=== PATIENT | female | born 1965 | race Caucasian/White ===

== ENCOUNTER 2018-06-28 02:12 | Inpatient (IN) | payer MEDICAID, OTHER ==
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
[2018-06-28] MEDS ORDERED: ACETAMINOPHEN TAB 325 MG TAB PO PRN (08:07)
[2018-06-28] MEDS ORDERED: MAGNESIUM HYDROXIDE 2,400 MG/10 ML CUP PO PRN (08:07)
[2018-06-28] MEDS ORDERED: MAG HYDROX/AL HYDROX/SIMETH 30 ML CUP PO PRN (08:07)
--- NOTE | 2018-06-28 10:48 | P.HPMEDMHU ---
History of Present Illness H&P Date: 06/28/18 Chief Complaint: Consult for MHU HPI The patient is a 52-year-old female with a past medical history of bipolar disorder who is admitted to the mental health unit due due to acute psychosis. Apparently the patient been having ongoing paranoid delusions, she reportedly tried to cross the border at the [employer] bridge and stated that she was being followed by terrorists. She also reported that she was going to [facility] to help . The patient mentioned that she was from out of state that she was tired from driving since Wednesday because she hasn't slept. Patient was difficult to redirect complaining that she was tired and fatigued and wanted to go back to bed to sleep. The patient was marginally cooperative during HPI hence most of the history is obtained from medical records, she did manage to deny having any chronic medical issues, she denied any chest pain or shortness of breath. She denied any suicidal or homicidal ideation. On admission the patient was noted to be hypertensive 149/102 Review of Systems Pertinent positives per HPI all other review of systems otherwise negative Past Medical History Past Medical History: No Reported History History of Any Multi-Drug Resistant Organisms: None Reported Past Surgical History: No Surgical Hx Reported Past Psychological History: Bipolar Smoking Status: Never smoker Past Alcohol Use History: None Reported Past Drug Use History: None Reported Medications and Allergies Allergies Allergy/AdvReac Type Severity Reaction Status Date / Time No Known Allergies Allergy Verified 06/28/18 02:45 Physical Exam Vitals: Vital Signs Temp Pulse Pulse Resp BP BP Pulse Ox 06/28/18 07:50 97.3 F L 97 16 149/102 97 06/28/18 07:32 97.0 F L 72 18 145/78 98 06/28/18 02:15 98.0 F 78 16 143/80 98 Intake and Output 06/27/18 06/28/18 06/28/18 22:59 06:59 14:59 Other: Weight 113.398 kg Constitutional: No acute distress, conversant, pleasant Eyes: Anicteric sclerae, moist conjunctiva, no lid-lag, PERRLA ENMT: NC/AT,Oropharynx clear, no erythema, exudates Neck:Supple, FROM, no masses, or JVD, No carotid bruits; No thyromegaly Lungs: Clear to auscultation, Clear to percussion, Normal respiratory effort, no accessory muscle use Cardiovascular: Heart regular in rate and rhythm, No murmurs, gallops, or rubs no peripheral edema Abdominal: Soft Nontender, nom distended, no guarding, no rebound or rigidity, Normoactive bowel sounds No hepatomegaly, No splenomegaly, No palpable mass No abdominal wall hernia noted Skin: Normal temperature, tone, texture, turgor, No induration No subcutaneous nodules, No rash, lesions, No ulcers Extremities:No digital cyanosis No clubbing, Pedal pulses intact and symmetrical Radial pulses intact and symmetrical Normal gait and station, No calf tenderness Psychiatric: Not cooperative oriented to self only, paranoid delusions of persecution, bizarre thought content Neuro: Muscles Strength 5/5 in all 4 extremities, Sensation to light touch grossly present throughout, Cranial nerves II-XII grossly intact. No focal sensory deficits Cranial Nerve Examination - Cranial Nerves Cranial Nerve II- Optic: Intact Cranial Nerve III- Oculomotor: Intact Cranial Nerve IV- Trochlear: Intact Cranial Nerve V- Trigeminal: Intact Cranial Nerve - Abducens: Intact Cranial Nerve VII- Facial: Intact Cranial Nerve VIII- Auditory: Intact Cranial Nerve IX- Glossopharyngeal: Intact Cranial Nerve X- Vagus: Intact Cranial Nerve XI- Accessory: Intact Cranial Nerve XII- Hypoglossal: Intact Assessment and Plan (1) Acute psychosis Current Visit: Yes Status: Acute Code(s): F23 - BRIEF PSYCHOTIC DISORDER SNOMED Code(s): 52819336 (2) Acute exacerbation of chronic schizophrenia Current Visit: Yes Status: Acute Code(s): F20.9 - SCHIZOPHRENIA, UNSPECIFIED SNOMED Code(s): 259382128 (3) Bipolar disorder Current Visit: Yes Status: Acute Code(s): F31.9 - BIPOLAR DISORDER, UNSPECIFIED SNOMED Code(s): 42188773 (4) Hypertension Current Visit: Yes Status: Acute Code(s): I10 - ESSENTIAL (PRIMARY) HYPERTENSION SNOMED Code(s): 63438114 Plan: The patient is admitted to the mental health unit anticipated greater than 2 midnight stay with acute psychosis and exacerbation of schizophrenia, will defer to inpatient psychiatry team regarding ongoing psychotropic therapy in coordination with CBT. The patient is noted to have elevated blood pressure and possibly has hypertension she started on Norvasc 5 mg by mouth daily. We' ll continue to follow her clinical course and follow-up her admission labs. I appreciate the opportunity to be involved in ongoing care of this patient. For further questions please does not hesitate to contact the [facility] inpatient team
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
[2018-06-28] MEDS: PALIPERIDONE 3 MG TAB.ER.24 PO SCH (12:29)
[2018-06-28] MEDS: amLODIPine 5 MG TAB PO SCH (12:30)
[2018-06-28] MEDS: DIVALPROEX ER 500 MG TAB.ER.24H PO SCH (21:05)
[2018-06-29] MEDS: amLODIPine 5 MG TAB PO SCH (08:57)
[2018-06-29] MEDS: PALIPERIDONE 3 MG TAB.ER.24 PO SCH (08:58)
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
[2018-06-29 10:08] LABS: ALT 42 U/L (9-52); AST 28 U/L (14-36); Albumin 3.8 g/dL (3.5-5.0); Alkaline Phosphatase 80 U/L (38-126); Anion Gap 8 mmol/L; Bilirubin, Delta 0.3 mg/dL (0.0-0.2); Bilirubin,Unconjugated 0.2 mg/dL (0.0-1.1); Blood Urea Nitrogen 15 mg/dL (7-17); Calcium 9.4 mg/dL (8.4-10.2); Carbon Dioxide 28 mmol/L (22-30); Chloride 108 mmol/L (98-107); Glucose 116 mg/dL (74-99); Sodium 144 mmol/L (137-145); Total Bilirubin 0.5 mg/dL (0.2-1.3); Total Protein 6.6 g/dL (6.3-8.2)
[2018-06-29 10:21] LABS: Basophils % (A) 1 %; Eosinophils # (A) 0.2 k/uL (0-0.7); Eosinophils % (A) 3 %; HCT 40.4 % (34.0-46.0); HGB 13.8 gm/dL (11.4-16.0); Lymphocytes # (A) 1.8 k/uL (1.0-4.8); Lymphocytes % (A) 34 %; MCV 85.3 fL (80.0-100.0); Mean Platelet Volume 6.6; Monocytes # (A) 0.3 k/uL (0-1.0); Monocytes % (A) 5 %; Neutrophils # (A) 2.9 k/uL (1.3-7.7); Neutrophils % (A) 55 %; Platelet Count 256 k/uL (150-450); RBC 4.74 m/uL (3.80-5.40); WBC 5.3 k/uL (3.8-10.6)
[2018-06-29 11:14] LABS: Potassium 3.1 mmol/L (3.5-5.1)
[2018-06-29] MEDS ORDERED: POTASSIUM CHLORIDE ER 20 MEQ TAB.ER PO STA (12:50)
[2018-06-29 14:47] LABS: T4, Free (Free Thyroxine) 1.24 ng/dL (0.78-2.19)
[2018-06-29] MEDS: DIVALPROEX ER 500 MG TAB.ER.24H PO SCH (21:35)
[2018-06-30] MEDS: amLODIPine 10 MG TAB PO SCH (07:01)
[2018-06-30] MEDS: PALIPERIDONE 6 MG TAB.ER.24 PO SCH ×2 (08:57→10:39)
[2018-06-30 09:34] LABS: Anion Gap 8 mmol/L; Blood Urea Nitrogen 13 mg/dL (7-17); Calcium 9.8 mg/dL (8.4-10.2); Carbon Dioxide 30 mmol/L (22-30); Chloride 104 mmol/L (98-107); Glucose 115 mg/dL (74-99); Potassium 4.6 mmol/L (3.5-5.1); Sodium 142 mmol/L (137-145)
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
[2018-07-01] MEDS: DIVALPROEX ER 500 MG TAB.ER.24H PO SCH ×2 (07:38→20:51)
[2018-07-01] MEDS: PALIPERIDONE 6 MG TAB.ER.24 PO SCH (07:40)
[2018-07-01] MEDS: amLODIPine 10 MG TAB PO SCH (07:40)
--- NOTE | 2018-07-01 10:07 | P.PN ---
Progress Note - Text Interval history: The patient is found in her room she follows me to an interview room. She states that we have numerous Al Qaeda workers here. She reports that the person wearing green in the kitchen is Al Rebecca. She states that there are invisible [employer] members here protecting her. She states that there are angels that are using invisibility blankets to conceal them. She states that she is involved in a spiritual warfare. She is surprised that were not more aware of what's going on as this is a hospital. She directs me to contact the [employer], her service desk team lead Cristhian in [place] and Shanice. She states that we have the devil here on the unit. Numerous times she states she's not crazy. She indicates not attending groups she has been eating. She reports that she slept throughout the night. Mental status exam: The patient is a tall overweight female appearing her stated age. She is pleasant cooperative easily directed. She continues to describe a detailed delusional construct. Thought process is ruminative regarding her delusional thoughts. She reports no suicidal or homicidal thoughts. She is endorsing auditory hallucinations where she will hear the whispers of angels that are keeping [employer] members invisible as they are here to protect her. She demonstrates no verbal or physical aggressiveness she demonstrates no involuntary repetitive movements. Insight and judgment are poor. Plan: The patient remains acutely psychotic she will remain on her current psychotropic medications. She did comply with those yesterday and today. She indicates she did not meet with the family nurse practitioner for the deferral conference as she felt he was from [facility]. She is encouraged to participate in the milieu. Vital signs reviewed.
[2018-07-02] MEDS: amLODIPine 10 MG TAB PO SCH (08:21)
[2018-07-02] MEDS: PALIPERIDONE 6 MG TAB.ER.24 PO SCH (08:21)
--- NOTE | 2018-07-02 12:46 | P.PN ---
Progress Note - Text Progress Note Date: 07/02/18 Interval history: Patient is seen in cross coverage today. She is found seated on furniture in the hallway. She is not agreeable to come with me to the interview room. She makes reference to that she is going to lunch. Mental status exam: She is found in the hallway seated on furniture. She refuses to come to the interview room to meet with me. She makes reference to going to lunch. She is noted to be moving her hand down and seems like she is grasping something in the air. She does not show any agitation. Plan: Patient would be maintained on current psychotropic medication regimen will continue to monitor for any medication side effects and monitor her ongoing response to treatment. We will attempt to interview the patient again tomorrow.
[2018-07-02] MEDS: DIVALPROEX ER 500 MG TAB.ER.24H PO SCH (20:06)
[2018-07-03] MEDS: PALIPERIDONE 6 MG TAB.ER.24 PO SCH (07:52)
[2018-07-03] MEDS: amLODIPine 10 MG TAB PO SCH (07:52)
--- NOTE | 2018-07-03 14:12 | P.PN ---
Progress Note - Text Progress Note Date: 07/03/18 Interval history: Patient is seen in cross [facility] today. She reports that she slept well last night and is eating well. She denies any adverse psychotropic medication side effects. She seems to be compliant with taking the psychotropic medications. Mental status exam: She is found initially in her room and is agreeable to meet with me in the interview room with staff present. Her affect overall is restricted. She answers questions very briefly. She is cooperative. She does not show any agitation. She denies any thoughts of harm to self or others. She denies any hallucinations. She does not verbalize any maribell delusions during the session. She says she has some questions but she prefers to ask them to her psychiatrist. Plan: Patient will be maintained on current psychotropic medication regimen. Continue to monitor for any medication side effects and monitor her ongoing response to treatment.
[2018-07-03] MEDS: DIVALPROEX ER 500 MG TAB.ER.24H PO SCH (21:55)
[2018-07-04] MEDS: amLODIPine 10 MG TAB PO SCH (09:45)
[2018-07-04] MEDS: PALIPERIDONE 6 MG TAB.ER.24 PO SCH ×2 (09:45→10:02)
--- NOTE | 2018-07-04 10:51 | P.PN ---
Progress Note - Text Interval history: The patient is found in her room she follows me to an interview room. She indicates her mood is fine. She states that the weekend covering physician was Sudarshan Fernandez and she did not want to meet with him. She goes on to describe paranoid and persecutory thoughts. She states she has been eating. Sleep at night is been diminished but she is sleeping during the day. She has not been showering since she has been on the mental health unit. She has no questions or concerns regarding her medication. During team meeting we discussed being on the lookout for cheeking behavior. Metal status exam: The patient is an overweight tall female appearing her stated age. Hygiene and grooming are impaired she is malodorous. Eye contact is appropriate speech is fluent spontaneous nonpressured. She is verbose regarding her delusional thought content. She continues to feel that she is being tracked by Sudarshan Fernandez and they have infiltrated the hospital. She is reporting no suicidal or homicidal ideation. She is demonstrating no verbal or physical aggressiveness she demonstrates no involuntary repetitive movements. Insight and judgment are impaired. Plan: The patient will continue on her current medication. We will draw a Depakote level. Staff will monitor for medication compliance. Reality orientation is provided. She is encouraged to attend groups. Vital signs reviewed. The patient has demonstrated no improvement so far in terms of her psychosis she requires continued psychiatric hospitalization.
[2018-07-04] MEDS: DIVALPROEX ER 500 MG TAB.ER.24H PO SCH (20:56)
[2018-07-05] MEDS: PALIPERIDONE 6 MG TAB.ER.24 PO SCH (09:28)
[2018-07-05] MEDS: amLODIPine 10 MG TAB PO SCH (09:28)
--- NOTE | 2018-07-05 09:31 | P.PN ---
Progress Note - Text Interval history: The patient is found in her room she follows me to an interview room. She wonders if I think she has bipolar disorder. She states whenever people here that she is being followed by [facility] people they assume she has bipolar disorder. She asked that I be brave and contact the [employer] to access her file as they are aware of what is going on. She states that she met with her disability attorney yesterday and plans to proceed [address] hearing. She indicates she showered yesterday but is still malodorous. She reports sleeping throughout the night staff recorded she slept 5 hours. She states that she is complying with medication. Social work notes reviewed. Mental status exam: The patient is a tall overweight female. She has impaired hygiene grooming. She does have a body odor. She reports feeling frustrated that people assume she has a bipolar disorder. She indicates she does not need medication. She continues to feel she is followed and is in danger from members of [facility]. She will state several short prayers to protect herself while she is here. She asks me to pray for her as well. She reports no suicidal or homicidal ideation intent or plan. She continues to describe some visual hallucinations. She demonstrates no verbal or physical aggressiveness. She is easily directed during the session. Plan: The patient remains acutely psychotic. We are awaiting the results of the Depakote level. We will consider titrating the Depakote as well as the invega. She is scheduled to participate in a full court hearing tomorrow. We will continue monitoring her for safety. Vital signs reviewed. She is encouraged to more fully attend to her activities of daily living in particular hygiene.
[2018-07-05 13:53] LABS: Valproic Acid (Depakene) 81.6 ug/mL
[2018-07-05] MEDS: DIVALPROEX ER 500 MG TAB.ER.24H PO SCH (19:55)
[2018-07-06] MEDS: amLODIPine 10 MG TAB PO SCH (07:36)
[2018-07-06] MEDS: PALIPERIDONE 6 MG TAB.ER.24 PO SCH (07:36)
--- NOTE | 2018-07-06 11:09 | P.PN ---
Progress Note - Text Interval history: The patient is found in her room she follows me to an interview room. She reports she continues to feel unsafe as previously described. She begins talking about prior hospitalizations and how she had concern that people were rewiring the mental health unit. We discussed the court process involved for today's hearing. We reviewed her psychotropic medications. Her Depakote level came back at 81.6 liver enzymes were within normal limits. She reports that she slept last night. She has not been attending groups. The patient remains very preoccupied with her delusional construct and this continues to cause dysfunction for her. Mental status exam: The patient is alert she is dressed in her own clothing hygiene grooming fair. Eye contact appropriate speech is fluent and spontaneous nonpressured. She is verbose and we'll continue to talk at length about her paranoid and persecutory thoughts. She continues to feel protected by the police and but feels that the [employer] are working against her. She reports feeling unsafe here on this mental health unit. Insight and judgment are impaired. She seated calmly in the chair. She demonstrates no verbal or physical aggressiveness. Plan: The patient remains acutely psychotic which contributes to her psychosocial dysfunction. We will continue on her current medication we will consider titrating the Invega further. She has a court hearing scheduled for this afternoon. Vital signs reviewed.
[2018-07-06] MEDS: DIVALPROEX ER 500 MG TAB.ER.24H PO SCH (20:28)
[2018-07-07] MEDS: amLODIPine 10 MG TAB PO SCH (07:34)
[2018-07-07] MEDS: PALIPERIDONE 6 MG TAB.ER.24 PO SCH (07:34)
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
[2018-07-07] MEDS: DIVALPROEX ER 500 MG TAB.ER.24H PO SCH (20:59)
[2018-07-08] MEDS: PALIPERIDONE 6 MG TAB.ER.24 PO SCH (08:43)
[2018-07-08] MEDS: amLODIPine 10 MG TAB PO SCH (08:43)
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
[2018-07-08] MEDS: DIVALPROEX ER 500 MG TAB.ER.24H PO SCH (21:00)
[2018-07-09] MEDS: PALIPERIDONE 6 MG TAB.ER.24 PO SCH (08:01)
[2018-07-09] MEDS: amLODIPine 10 MG TAB PO SCH (08:01)
--- NOTE | 2018-07-09 18:41 | P.PN ---
Progress Note - Text Progress Note Date: 07/09/18 Interval history: The patient is found in her room laying in bed comfortably. Found her still anxious and nervous. She denies hearing any voices or seeing things. We reviewed her psychotropic medications. Although she continues to comply with what's prescribed she states she does not believe she needs them. We discussed titrating the Invega further and she refuses. Mental status exam: The patient is a tall overweight female appearing her stated age. She has impaired hygiene grooming and she is malodorous. She is dressed in the same clothing. She is wearing her eyeglasses. She seated calmly. She is pleasant and cooperative. She demonstrates no verbal or physical aggressiveness. She continues to deny having any thoughts of harming herself or others but states she will defend herself. Spontaneously and at length she describes her delusional construct. She continues to feel pursued and persecuted by members of [facility]. She reports not showering as she feels unsafe here. She does not frequently attend groups and will isolate in her room. Insight and judgment are impaired. Her thoughts are largely focused on her delusional content. Plan: Will continue to offer her increased dose of invega. She is encouraged to continue complying with the psychotropic medications as written. She remains acutely psychotic. She isolates in her room. She is malodorous from not bathing due to her delusional thoughts. She demonstrates no improved insight into her psychosis since time of admission.
[2018-07-09] MEDS: DIVALPROEX ER 500 MG TAB.ER.24H PO SCH (20:52)
[2018-07-10] MEDS: amLODIPine 10 MG TAB PO SCH (08:35)
[2018-07-10] MEDS: PALIPERIDONE 6 MG TAB.ER.24 PO SCH (08:35)
--- NOTE | 2018-07-10 11:49 | P.PN ---
Progress Note - Text Progress Note Date: 07/10/18 Interval history: The patient is found in her room writing notes. Found her still anxious and nervous. She denies hearing any voices or seeing things. We reviewed her psychotropic medications. Although she continues to comply with what's prescribed she states she does not believe she needs them. We discussed titrating the Invega further and she refuses. She took shower yesterday Mental status exam: The patient is a tall overweight female appearing her stated age. She has impaired hygiene grooming and she is malodorous. She is dressed in the same clothing. She is wearing her eyeglasses. She seated calmly. She is pleasant and cooperative. She demonstrates no verbal or physical aggressiveness. She continues to deny having any thoughts of harming herself or others but states she will defend herself. Spontaneously and at length she describes her delusional construct. She continues to feel pursued and persecuted by members of [facility]. She reports not showering as she feels unsafe here. She does not frequently attend groups and will isolate in her room. Insight and judgment are impaired. Her thoughts are largely focused on her delusional content. Plan: Will continue to offer her increased dose of invega. She is encouraged to continue complying with the psychotropic medications as written. She remains acutely psychotic. She isolates in her room. She demonstrates no improved insight into her psychosis since time of admission.
[2018-07-10] MEDS: DIVALPROEX ER 500 MG TAB.ER.24H PO SCH (20:30)
[2018-07-11] MEDS: amLODIPine 10 MG TAB PO SCH (07:41)
[2018-07-11] MEDS: PALIPERIDONE 6 MG TAB.ER.24 PO SCH (07:41)
--- NOTE | 2018-07-11 16:49 | P.PN ---
Progress Note - Text Progress Note Date: 07/11/18 Interval history: The patient is found out side her room first time. Found her much calmer and relax, getting ready to take shower. She denies hearing any voices or seeing things. We reviewed her psychotropic medications. Although she continues to comply with what's prescribed she states she does not believe she needs them. Mental status exam: The patient is a tall overweight female appearing her stated age. She has impaired hygiene grooming and she is malodorous. She is dressed in the same clothing. She is wearing her eyeglasses. She seated calmly. She is pleasant and cooperative. She demonstrates no verbal or physical aggressiveness. She continues to deny having any thoughts of harming herself or others but states she will defend herself. Spontaneously and at length she describes her delusional construct. She continues to feel pursued and persecuted by members of Al [facility]. She reports not showering as she feels unsafe here. She does not frequently attend groups and will isolate in her room. Insight and judgment are impaired. Her thoughts are largely focused on her delusional content. Plan: Will continue to adjust medications accordingly by increased dose of invega. She is encouraged to continue complying with the psychotropic medications as written.
[2018-07-11] MEDS: DIVALPROEX ER 500 MG TAB.ER.24H PO SCH (19:57)
[2018-07-12] MEDS: PALIPERIDONE 6 MG TAB.ER.24 PO SCH ×2 (10:22→10:48)
[2018-07-12] MEDS: amLODIPine 10 MG TAB PO SCH ×2 (10:22→10:48)
--- NOTE | 2018-07-12 11:45 | P.PN ---
Progress Note - Text Progress Note Date: 07/12/18 Interval history: The patient is found out side her room first time. Found her much calmer and relax. She denies hearing any voices or seeing things. According to staff she is not taking shower but patient is damant about taking shower every day. She has poor hygiene . We reviewed her psychotropic medications. Although she continues to comply with what's prescribed she states she does not believe she needs them. Mental status exam: The patient is a tall overweight female appearing her stated age. She has impaired hygiene grooming and she is malodorous. She is dressed in the same clothing. She is wearing her eyeglasses. She seated calmly. She is pleasant and cooperative. She demonstrates no verbal or physical aggressiveness. She continues to deny having any thoughts of harming herself or others but states she will defend herself. Spontaneously and at length she describes her delusional construct. She continues to feel pursued and persecuted by members of [facility]. She reports not showering as she feels unsafe here. She does not frequently attend groups and will isolate in her room. Insight and judgment are impaired. Her thoughts are largely focused on her delusional content. Plan: Will continue to adjust medications accordingly by increased dose of invega. She is encouraged to continue complying with the psychotropic medications as written.
[2018-07-12] MEDS: DIVALPROEX ER 500 MG TAB.ER.24H PO SCH (20:54)
[2018-07-13] MEDS: amLODIPine 10 MG TAB PO SCH (08:17)
[2018-07-13] MEDS: PALIPERIDONE 3 MG TAB.ER.24 PO SCH (08:17)
--- NOTE | 2018-07-13 17:16 | P.PN ---
Progress Note - Text Progress Note Date: 07/13/18 Interval history: The patient is seen inside her room. Found laying in her bed. Found her much calmer and relax. She took increased dose of invega without any issues. Has no side effects. Continues to deny hearing any voices or seeing things. Has been eatinga nd sleeping better. Behaviorally well controlled. Still has poor hygeine. Mental status exam: The patient is a tall overweight female appearing her stated age. She has impaired hygiene grooming and she is malodorous. She is dressed in the same clothing. She is wearing her eyeglasses. She seated calmly. She is pleasant and cooperative. She demonstrates no verbal or physical aggressiveness. She continues to deny having any thoughts of harming herself or others but states she will defend herself. Spontaneously and at length she describes her delusional construct. She continues to feel pursued and persecuted by members of Al [facility]. She reports not showering as she feels unsafe here. She does not frequently attend groups and will isolate in her room. Insight and judgment are impaired. Her thoughts are largely focused on her delusional content. Plan: Will continue to adjust medications accordingly by increased dose of invega. She is encouraged to continue complying with the psychotropic medications as written.
[2018-07-13] MEDS: DIVALPROEX ER 500 MG TAB.ER.24H PO SCH (20:09)
[2018-07-14] MEDS: amLODIPine 10 MG TAB PO SCH (09:34)
[2018-07-14] MEDS: PALIPERIDONE 3 MG TAB.ER.24 PO SCH (09:34)
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
[2018-07-14] MEDS: DIVALPROEX ER 500 MG TAB.ER.24H PO SCH (20:11)
[2018-07-15] MEDS: amLODIPine 10 MG TAB PO SCH (08:57)
[2018-07-15] MEDS: PALIPERIDONE 3 MG TAB.ER.24 PO SCH (08:57)
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
[2018-07-15] MEDS: DIVALPROEX ER 500 MG TAB.ER.24H PO SCH (20:20)
[2018-07-16] MEDS: amLODIPine 10 MG TAB PO SCH (07:50)
[2018-07-16] MEDS: PALIPERIDONE 3 MG TAB.ER.24 PO SCH (07:50)
[2018-07-16] MEDS ORDERED: HALOPERIDOL 5 MG TAB PO SCH (18:00)
[2018-07-16] MEDS ORDERED: HALOPERIDOL ORAL SOLN 10 MG/5 ML CUP PO SCH (18:15)
[2018-07-16] MEDS ORDERED: OLANZapine 10 MG TAB PO SCH (19:00)
--- NOTE | 2018-07-16 20:07 | PN ---
DATE OF SERVICE: 07/16/2018 PROGRESS NOTE CHIEF COMPLAINT: The patient has had persistent delusions of terrorists with threats to her life. INTERVAL HISTORY: The patient continues to be quite delusional. She talked at length about plots and nefarious happenings going back to 2006 when she precipitously left a job in a [id number]. She believes there were threats in that city. Apparently she has persisted in delusions since then. She has had some psychiatric hospitalizations in the past. She states the last time was in 2016 when she had significant fear for her life. She believes that she is followed and that there are various threats. She has ideas of reference and will and will do things such as be in a public place and believes that people around her are acting in ways as if plotting to harm her. She may imagine people looking simultaneously at something that becomes a sign for her. She may find papers and believe that things on the papers suggests some plots. In reviewing her notes, it does not appear she has shown any response to her medications. In fact, Dr. Villa's note from yesterday states "so far her symptoms of psychosis have not reduced." She has been sleeping fairly well. Generally, she is cooperative. In spite of continuing with the legal issues relating to her involuntary hospitalization, she stated that she was willing to take any medications recommended. It was noted that she has a mild parkinsonian tremor in her left arm, though when I asked her about it she says she has no tremor at all. Noted that when I asked her about people who may be important supports for her and someone that we might be able to contact to help further the evaluation and treatment, she was very adamant about the idea that she would not reveal any names or information about others. MENTAL STATUS: Patient gave good eye contact. She was quite talkative. She asked if I would listen to a story, and then she went on with very detailed explanation about the events going back to 2006. She related one thought to the next and over quite a period of time, was still focused just on the events of 2006. She suggested that year by year the events continued. Her thoughts were coherent and goal directed. For the most part she seemed to ramble. Her affect was somewhat constricted. Her mood dysphoric. She was moderately distressed. It was noteworthy that toward the end of the interview when I tried to provide some information to her, she started talking somewhat under her breath as if she was responding to internal stimuli. She was ambulatory with normal gait and strength. There was no tremor, abnormal movements or rigidity. ASSESSMENT/PLAN: Continue the current diagnosis and general treatment plan. The patient has shown no response to Invega. I would consider switching her to Haldol, though oral Haldol is not available. We offered liquid Haldol, though she declined to take that. I discussed the option of starting her on Zyprexa as an alternative. Again, she declined that. She then said that she would only take the Invega, so at this point, we will continue on Invega. I will increase the dose to 6 mg twice a day. She will continue Depakote 1000 mg at bedtime. Her last Depakote level on July 05 was 81.6. We will continue to focus on stabilization and discharge planning. TAMI / FALLON: [id number] / MTDD
[2018-07-16] MEDS: DIVALPROEX ER 500 MG TAB.ER.24H PO SCH (20:51)
[2018-07-16] MEDS: PALIPERIDONE 6 MG TAB.ER.24 PO SCH (20:52)
[2018-07-17] MEDS: PALIPERIDONE 6 MG TAB.ER.24 PO SCH ×2 (07:27→20:45)
[2018-07-17] MEDS: amLODIPine 10 MG TAB PO SCH (07:28)
--- NOTE | 2018-07-17 15:24 | PN ---
PROGRESS NOTE DATE OF SERVICE: 07/17/2018. CHIEF COMPLAINT: The patient has had persistent delusions of terrorists with threats to her life. INTERVAL HISTORY: Patient has been doing about the same. She continues to be superficially calm with a quiet manner. Most any discussion with her leads her into making some statements with paranoid reference. She has been taking her medication, though continues to say that she would not consider any other medications at this time. She gets focused on her 2nd opinion evaluation that she has requested. She does not provide any reliable information about her current status. Pretty much any question I asked her about her daily function and so forth, she simply gives a day responsive "okay." It is noted that when I first saw her, she was doing some drawing. It appeared that she was trying different pairs of shoes. When I had made mention of that, she quite quickly turned paper over that she had so that it was not visible. She has been cooperative with basic care. She is taking her medications. MENTAL STATUS: Patient gave fair eye contact at best. Psychomotor activity was slowed. Speech was monotone. She did not say much. She answered with very brief responses. It is not clear how much information she provided that was reliable. Her affect was flat. Her mood withdrawn. She seems significantly distressed. She exhibits paranoid delusions. ASSESSMENT: I will continue the current diagnosis and treatment plan. I will continue psychotropic medications the same. Patient has had no problems with the increase of Invega to 6 mg twice a day. Paranoid delusions remain prominent. We will continue to focus on stabilization and discharge planning. TAMI / AWAISN: [id number] /
[2018-07-17] MEDS: DIVALPROEX ER 500 MG TAB.ER.24H PO SCH (20:45)
[2018-07-18] MEDS: amLODIPine 10 MG TAB PO SCH (08:52)
[2018-07-18] MEDS: PALIPERIDONE 6 MG TAB.ER.24 PO SCH ×2 (08:52→20:28)
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
[2018-07-18] MEDS: DIVALPROEX ER 500 MG TAB.ER.24H PO SCH (20:28)
[2018-07-18 20:50] LABS: Appearance,Urine Cloudy (Clear); Bilirubin,Urine Negative (Negative); Blood,Urine Trace (Negative); Color,Urine Light Yellow; Glucose,Urine (UA) Negative (Negative); Ketones,Urine Negative (Negative); Leukocyte Esterase,Urine Large (Negative); Mucus,Urine Rare /hpf; Nitrite,Urine Negative (Negative); PH, Urine 6.5 (5.0-8.0); Protein,Urine Negative (Negative); RBC,Urine 1 /hpf (0-5); Specific Gravity,Urine 1.005 (1.001-1.035); Squamous Epithelial Cell,Urine 2 /hpf (0-4); Urobilinogen,Urine <2.0 mg/dL (<2.0); WBC,Urine 123 /hpf (0-5)
[2018-07-18] MEDS: SULFAMETHOX-TMP 800-160MG 1 EACH TAB PO SCH (21:41)
[2018-07-19] MEDS: SULFAMETHOX-TMP 800-160MG 1 EACH TAB PO SCH ×2 (07:43→20:33)
[2018-07-19] MEDS: amLODIPine 10 MG TAB PO SCH (07:43)
[2018-07-19] MEDS: PALIPERIDONE 6 MG TAB.ER.24 PO SCH ×2 (07:43→20:33)
--- NOTE | 2018-07-19 11:56 | P.PN ---
Progress Note - Text Interval history: The patient is found in her room she follows me to an interview room. She states that she feels she is being poisoned here. She feels that the water is poisoned that she is drinking and she is suspicious of bubbles in the toilet water. She continues to feel that the milk is too thick. She describes having left-sided flank pain. She feels that she needs an IV because of the poison. A urinalysis was performed which was abnormal a urine culture was ordered those results are pending. She was started on Bactrim DS by internal medicine. The patient continues to feel she does not require hospitalization. Continues to describe the same paranoid and persecutory thoughts. Mental status exam: The patient is a tall overweight female she is dressed in her own clothing she has a disheveled appearance. She describes delusional thoughts mainly paranoid and persecutory in nature. She presented with thoughts of being chased by [employer] but now believes that she is being poisoned here via her food and water. She is more somatically preoccupied today. She is reporting no suicidal or homicidal thoughts. She continues to experience hallucinations. Insight and judgment are impaired. Plan: The patient will continue on her current psychotropic medication. She remains acutely psychotic. Vital signs were reviewed they are within normal limits she is afebrile. Urinalysis was abnormal we are awaiting urine culture results. Bactrim DS was started by internal medicine. We will continue to monitor her for safety. She is awaiting an independent medical evaluation to be arranged by the court.
[2018-07-19] MEDS: DIVALPROEX ER 500 MG TAB.ER.24H PO SCH (20:33)
[2018-07-20] MEDS: SULFAMETHOX-TMP 800-160MG 1 EACH TAB PO SCH ×2 (07:28→20:12)
[2018-07-20] MEDS: amLODIPine 10 MG TAB PO SCH (07:28)
[2018-07-20] MEDS: PALIPERIDONE 6 MG TAB.ER.24 PO SCH ×2 (07:28→20:12)
--- NOTE | 2018-07-20 10:00 | PN ---
PROGRESS NOTE DATE OF SERVICE: 07/20/2018 CHIEF COMPLAINT: The patient has had persistent delusions of terrorists with threats to her life. INTERVAL HISTORY: The patient has been doing fair. She had a quiet evening last night. She slept fairly well. Today she has been up. She will come out in the day area. She may spend time at a table doing some paperwork. She keeps to herself. She does not really interact with others. She did not attend any groups yesterday. She can present in a calm, controlled manner most of the time, though at any point if issues are addressed relating to some of her thoughts which are not in touch with reality she quickly starts becoming defensive. She can show some periods of irritability. She can be demanding at times. She has a lot of behavior that arises from her paranoid thinking. She will hide papers so others do not see what she might be writing or reading. She will become very avoidant. She has been taking her medications. MENTAL STATUS: Patient was in the day area. She gave fair eye contact. She answered a few questions, though she is very brief and limited in what she said. She smiled a little, though it did not appear to be a comfortable smile. Her mood was reserved. She continues to exhibit paranoid thinking that drives most of her interactions and behaviors. ASSESSMENT: I will continue the current diagnosis and treatment plan. Will continue psychotropic medications the same. Primary issue is to focus on her continuing her antipsychotic medication if she can be coaxed into switching to an alternative antipsychotic there might be benefit from adding another or switching as she has not shown much response to Invega. On the other hand, my understanding is that in the past she has had a history of very slow recovery from severe psychosis and she may just need more time. We will continue to focus on stabilization and discharge planning. MMODL / IJN: [id number] /
[2018-07-20] MEDS: DIVALPROEX ER 500 MG TAB.ER.24H PO SCH (20:12)
[2018-07-21] MEDS: PALIPERIDONE 6 MG TAB.ER.24 PO SCH ×2 (09:25→21:03)
[2018-07-21] MEDS: SULFAMETHOX-TMP 800-160MG 1 EACH TAB PO SCH ×2 (09:25→21:04)
[2018-07-21] MEDS: amLODIPine 10 MG TAB PO SCH (09:25)
--- NOTE | 2018-07-21 11:21 | P.PN ---
Progress Note - Text Interval history: The patient is found in her room she follows me to an interview room. She reports that she continues to isolate in her room and she feels uncomfortable in group. She continues to have concerns about her food being contaminated. She does not address any concerns regarding medications. She discusses her rn case manager and therapist back home. She states she doesn't like her rn case manager as she doesn't believe that the patient is being followed by Sudarshan Fernandez. She feels that her therapist is more aligned with her thoughts and likes her better. The patient continues to feel unsafe here. Mental status exam: The patient is a tall overweight female. She has a disheveled appearance. Eye contact is appropriate speech is fluent spontaneous nonpressured. She continues to speak of her delusional thought content. She continues to feel unsafe in general. She lacks insight into her current symptoms of psychosis and judgment is subsequently impaired. She is reporting no suicidal or homicidal thoughts although she states she will defend herself against Sudarshan Fernandez. Thought process can be slightly disorganized at times but for the most part she provides a linear answer albeit delusional. Plan: The patient will continue on her current psychotropic medication we will monitor her for safety and encourage participation in the milieu. Her symptoms of psychosis continue she is still quite delusional. She has requested an independent medical exam which is yet to be arranged. Vital signs reviewed.
[2018-07-21] MEDS: DIVALPROEX ER 500 MG TAB.ER.24H PO SCH (21:03)
[2018-07-22] MEDS: SULFAMETHOX-TMP 800-160MG 1 EACH TAB PO SCH ×2 (08:40→20:01)
[2018-07-22] MEDS: amLODIPine 10 MG TAB PO SCH (08:40)
[2018-07-22] MEDS: PALIPERIDONE 6 MG TAB.ER.24 PO SCH ×2 (08:40→20:01)
--- NOTE | 2018-07-22 10:20 | P.PN ---
Progress Note - Text Interval history: The patient is found in her room she follows me to an interview room. She was observed meeting with the recipient rights individual to request that she not be videotaped she states. She reports she's being treated very poorly here as she doesn't understand why she is being held. She states she came to this area to request help. She expected to be housed for 1 night have her name turned into the for protection and she expected to go back home. She states that she is going to request a different broadcast engineer for her hearing related to this hospitalization. She has no questions regarding her medication. She reports that she slept last night staff recorded she slept 5 hours. Appetite stable but she is worried about her food being contaminated. Mental status exam: The patient is a tall overweight female hygiene grooming fair. Eye contact is appropriate speech is fluent spontaneous nonpressured. She spontaneously describes her continued delusional thought content. She reports no suicidal or homicidal ideation intent or plan. She demonstrates no verbal or physical aggressiveness. She will experience occasional visual hallucinations. She is oriented to day of the week as Wednesday she incorrectly names the date as the seventh but correctly names the month and year. She describes feeling bothered that others do not believe that she is in danger and being followed. Plan: The patient will continue on her current psychotropic medication. We're allowing the invega time to demonstrate efficacy. She remains acutely psychotic. Vital signs reviewed she demonstrated some tachycardia today we will monitor that further. Although she is resistant she is encouraged to participate in the milieu including groups.
[2018-07-22] MEDS: DIVALPROEX ER 500 MG TAB.ER.24H PO SCH (20:01)
[2018-07-23] MEDS: amLODIPine 10 MG TAB PO SCH (08:31)
[2018-07-23] MEDS: SULFAMETHOX-TMP 800-160MG 1 EACH TAB PO SCH ×2 (08:31→20:36)
[2018-07-23] MEDS: PALIPERIDONE 6 MG TAB.ER.24 PO SCH ×2 (08:31→20:36)
--- NOTE | 2018-07-23 10:40 | P.PN ---
Progress Note - Text Interval history: The patient is found in her room she follows me to an interview room. At length she describes a program of classes she would like to have the police conduct and has written up some ideas that she will present to them upon discharge. She indicates she is sleeping adequately appetite stable. She does not plan on attending groups today. She states that it is boring appear and there is no need for her continued hospitalization. She has been compliant with medication. Social work notes reviewed. Mental status exam: The patient is a tall overweight female. Hygiene and grooming are impaired she is malodorous. She reports having no symptoms but continues to describe feelings of persecution and paranoia. These delusional thoughts invade most of her daily thinking and therefore her insight/ judgment in overall function. She demonstrates no verbal or physical aggressiveness. She is reporting no suicidal or homicidal thoughts. She maintains a constricted affect. Plan: The patient will continue on her current medication. There has been little change so far in her acute psychosis. We will monitor further. We will consider changing the invega if necessary. Vital signs reviewed. She is encouraged to participate in the milieu.
[2018-07-23] MEDS: DIVALPROEX ER 500 MG TAB.ER.24H PO SCH (20:36)
[2018-07-24] MEDS: PALIPERIDONE 6 MG TAB.ER.24 PO SCH ×2 (08:52→20:21)
[2018-07-24] MEDS: amLODIPine 10 MG TAB PO SCH (08:52)
[2018-07-24] MEDS: SULFAMETHOX-TMP 800-160MG 1 EACH TAB PO SCH (08:52)
--- NOTE | 2018-07-24 12:22 | P.PN ---
Progress Note - Text Interval history: The patient is found in her room she follows me to an interview room. She states that things have been boring lately. She feels that her body needs rest and she's been staying in her room. There is been no group participation today. Social work reported the patient did participate in some group activities yesterday and was more appropriate. The patient asks if she is able to wave the request for independent medical exam and she is advised to contact her knife blade polisher to discuss that further. She has no questions or concerns regarding her medications. She indicates that she showered yesterday she reports that her appetite remains stable. Mental status exam: The patient is alert hygiene and grooming are improved it does appear that she showered. Eye contact is appropriate she is cooperative. She answers questions asked and has no spontaneous delusional conversation today. She reports no suicidal or homicidal ideation. She is endorsing no hallucinations currently. She does still have a delusional thought content regarding feelings of paranoia and persecution but is not spontaneously discussing them during this interaction. She demonstrates no verbal or physical aggressiveness today she demonstrates no involuntary repetitive movements. She is oriented to person place and date. Plan: The patient will continue on her current medications. We may be seen signs that there is some slight improvement. We will closely monitor her symptoms of psychosis. She is encouraged to participate in the milieu. She requires continued psychiatric hospitalization at this time.
[2018-07-24] MEDS: DIVALPROEX ER 500 MG TAB.ER.24H PO SCH (20:21)
[2018-07-25] MEDS: amLODIPine 10 MG TAB PO SCH (07:34)
[2018-07-25] MEDS: PALIPERIDONE 6 MG TAB.ER.24 PO SCH (07:34)
--- NOTE | 2018-07-25 10:52 | P.PN ---
Progress Note - Text Interval history: The patient is found in her room she follows me to an interview room. She indicates her mood is okay. She states that she is resting her body and continues to avoid group participation. She was able to sleep throughout the night. Staff feel that she is intermittently showering. She is demonstrating no behavioral disturbance. She continues to feel persecuted by [employer] but states today "I'm not planning that game, it doesn't bother me". She seems less concerned about staff up here being part of [facility] trying to follow her. We reviewed her psychotropic medications. She is no longer on the Bactrim. Mental status exam: The patient is a tall overweight female appearing her stated age. She has a disheveled appearance fair hygiene. Eye contact is appropriate. She is cooperative and easily directed. Affect is constricted. She does have spontaneous speech. She continues to harbor a delusional thought content that his paranoid and persecutory in nature but some small extent it may be remitting. She indicates feeling less concerned that there may be members of [facility] here monitoring her. She is reporting no suicidal or homicidal thoughts. Insight and judgment limited. There is a noticed resting tremor of her left upper extremity which she is not aware of. Plan: The patient continues to demonstrate symptoms of psychosis but there may be some small improvement. She is indicating she is spending less time thinking about these delusional concerns. We will continue with the invega I will reduce the dose back down to 9 mg total daily. Hopefully this will address the resting tremor. We will consider alternatives if needed. Vital signs reviewed. Social work will contact family to see if there have been any recent phone conversations to see if they're able to discern if she is approaching baseline. It seems likely that the patient would have some psychosis at baseline given the extensive nature of her delusional construct.
[2018-07-25] MEDS: DIVALPROEX ER 500 MG TAB.ER.24H PO SCH (20:52)
[2018-07-25] MEDS ORDERED: PALIPERIDONE 3 MG TAB.ER.24 PO SCH (21:00)
[2018-07-26] MEDS: amLODIPine 10 MG TAB PO SCH (08:08)
[2018-07-26] MEDS: PALIPERIDONE 6 MG TAB.ER.24 PO SCH (08:08)
--- NOTE | 2018-07-26 11:14 | P.PN ---
Progress Note - Text Interval history: The patient is found in her room she follows me to an interview room. She indicates her mood is "good is always". She reports that she slept. She states she's been showering every other day and that is her normal schedule. She has been resistant to attending groups and we discussed the importance of groups as it helps us in assessing her each day. She indicates that she wants to be discharged home and we discussed goals that she needs to accomplish prior to that. We reviewed her psychotropic medications she has no questions regarding them. She had several questions regarding the court process she is involved with. She is encouraged to speak with her development technician as she indicates she may not want the independent medical examination longer. Staff report that the patient has been pleasant and there is been less spontaneous talk of her delusional thoughts. Mental status exam: The patient is a tall overweight female appearing her stated age. Eye contact is appropriate speech is spontaneous fluent nonpressured. She continues to have the same delusional thoughts but she is not speaking of them spontaneously as often. They are still affecting her judgment. She expresses paranoia when we ask her to speak to her mother or other family members so they can assess her proximity to baseline in terms of the psychosis. She is reporting no suicidal or homicidal thoughts. She demonstrates no verbal or physical aggressiveness. She does have a resting tremor of her right upper extremity. Insight and judgment improved from admission but still impaired. Plan: The patient will continue on her current medication I'll reduce the invega back down to 6 mg daily. She is encouraged to speak with family via phone to assist us in getting collateral information. We will monitor her for safety. If she is wanting to make changes to her prior request she is instructed to speak with her development technician. Vital signs reviewed.
[2018-07-26] MEDS: DIVALPROEX ER 500 MG TAB.ER.24H PO SCH (19:58)
[2018-07-27] MEDS: PALIPERIDONE 6 MG TAB.ER.24 PO SCH (09:20)
[2018-07-27] MEDS: amLODIPine 10 MG TAB PO SCH (09:20)
--- NOTE | 2018-07-27 10:19 | P.PN ---
Progress Note - Text Interval history: The patient is found in her room she follows me to an interview room. She indicates her mood is fine. She states that she attended a few groups yesterday I will confirm with staff later during team meeting. She has no questions or concerns regarding medications. She indicates she met with her patent prosecution attorney and signed a deferral agreement not wanting to pursue any further court involvement. We discussed having her contact family. We discussed having family help her get back to [place] but she is resistant to that idea and states she doesn't need her parents because she is 52. Mental status exam: The patient is alert she seated calmly in the chair. Hygiene grooming adequate. Eye contact is appropriate speech is fluent spontaneous nonpressured. She does not spontaneously speak of her paranoid thoughts. When is brought up in conversation she will comment on it however. She indicates that she is less focused on those thoughts although they are still real. She is reporting no suicidal or homicidal ideation. Insight and judgment slowly improving. She demonstrates no verbal or physical aggressiveness. She does continue to have some resting tremor of her left upper extremity. Plan: The patient is demonstrating some improvement in terms of the severity of psychosis. She is resistant to the idea family helping her get back to [place]. She is encouraged to participate more in the milieu and she indicates she will try. Vital signs reviewed. We will discuss her case further in treatment team meeting. She does not wish to have any medication added to address the tremor. She states that it's not related to the invega.
[2018-07-27 16:02] VITALS: BMI 37.6
[2018-07-27] MEDS: DIVALPROEX ER 500 MG TAB.ER.24H PO SCH (20:09)
[2018-07-28] MEDS: amLODIPine 10 MG TAB PO SCH (08:07)
[2018-07-28] MEDS: PALIPERIDONE 6 MG TAB.ER.24 PO SCH (08:07)
--- NOTE | 2018-07-28 09:52 | P.PN ---
Progress Note - Text Interval history: The patient is found in her room she follows me to an interview room. She indicates her mood is good. She states she has not been attending groups at this morning but went to some yesterday. Social work has been in contact with the patient's family and they plan on coming Wednesday to assist the patient's return to [place]. The patient is agreeable with the plan. She has no questions regarding her psychotropic medication. She indicates she sleeping well at night staff report she slept 7 hours. Appetite is stable she indicates she showered yesterday. Mental status exam: The patient is a tall overweight female appearing her stated age. Hygiene and grooming are adequate. Eye contact is appropriate. She has less spontaneous speech than usual but does provide answers to questions asked. She indicates her mood is good she is reporting no suicidal or homicidal ideation intent or plan. She does not spontaneously describe any delusional thoughts but with probing questions she continues to demonstrate a delusional thought content. Thought process for the most part is linear he can become circumstantial at times. She demonstrates no tangential thinking loose associations or flight of ideas. She demonstrates no verbal or physical aggressiveness. It was difficult to observe any tremor in her left upper extremity today at rest as she kept that extremity in motion throughout our conversation. Insight and judgment are slowly improving. Plan: The patient will continue on her current psychotropic medications. We will monitor her for safety. It appears we have a reasonable plan for discharge on Wednesday. Vital signs are reviewed they're within normal limits. She is encouraged to more fully participate in group.
[2018-07-28] MEDS: DIVALPROEX ER 500 MG TAB.ER.24H PO SCH (20:35)
[2018-07-29] MEDS: amLODIPine 10 MG TAB PO SCH (08:38)
[2018-07-29] MEDS: PALIPERIDONE 6 MG TAB.ER.24 PO SCH (08:38)
--- NOTE | 2018-07-29 09:26 | P.PN ---
Progress Note - Text Interval history: The patient is found in her room she follows me to an interview room. She indicates her mood is good. She is looking forward to being discharged on Wednesday when her family arrives to escort her back to [place]. She has no questions or concerns regarding her psychotropic medication. She states that she has attended some groups but also prefers to be comfortable in her room at times. Mental status exam: The patient is alert she is dressed in her own clothing hygiene grooming adequate. She is calm and cooperative. She reports having no suicidal or homicidal ideation. She is demonstrating inability to care for herself. She demonstrates no tangential thinking loose associations or flight of ideas. She is not spontaneously talking about her delusional thoughts. With some questioning however it is apparent that they persist. She demonstrates no verbal or physical aggressiveness. She is oriented to person place and date. She is participating in the conversation appropriately overall. She is endorsing no auditory or visual hallucinations. Plan: The patient will continue on her current psychotropic medication. Vital signs are reviewed they're within normal limits. She was able to adequately sleep last night. We will monitor her for safety and encourage full participation in the milieu. We expect that she will be discharged Wednesday when her family arrives from [place].
[2018-07-29] MEDS: DIVALPROEX ER 500 MG TAB.ER.24H PO SCH (20:34)
[2018-07-30] MEDS: amLODIPine 10 MG TAB PO SCH (07:37)
[2018-07-30] MEDS: PALIPERIDONE 6 MG TAB.ER.24 PO SCH (07:37)
--- NOTE | 2018-07-30 16:07 | P.PN ---
Progress Note - Text Progress Note Date: 07/30/18 Interval history: Patient seen in cross coverage today. Does not verbalize any adverse psychotropic medication side effects. She says she feels more rested. She does she was displaying down to take a nap. Mental status exam: She is alert and cooperative. She was found in her room lying in bed, was cooperative with coming to the interview room. She does not show any agitation. She does not verbalize any thoughts of harm to self or others. She does describe that it is a fact that she is being followed but it' s not at the forefront of her mind. Plan/recommendations: Patient will be maintained on current psychotropic medication regimen. Continue to monitor for any medication side effects monitor her ongoing response to treatment.
[2018-07-30] MEDS: DIVALPROEX ER 500 MG TAB.ER.24H PO SCH (20:22)
[2018-07-31] MEDS: amLODIPine 10 MG TAB PO SCH ×2 (07:38→07:43)
[2018-07-31] MEDS: PALIPERIDONE 6 MG TAB.ER.24 PO SCH (07:38)
--- NOTE | 2018-07-31 14:43 | P.PN ---
Progress Note - Text Progress Note Date: 07/31/18 Interval history: Patient is seen in cross coverage today. She reports that she slept 8 or 9 hours last night. She seems to be eating well. She does not voice any adverse psychotropic medication side effects. mental status exam: She is alert and cooperative with the interview. She seems to describe her mood is doing well. She denies any thoughts of harm to self or others. She denies any hallucinations. She does describe concern that the person who has been running the groups this weekend is involved with [employer]. Plan: Patient will be maintained on current psychotropic medication regimen. She will be monitored regarding any medication side effects and we'll monitor her ongoing response to treatment.
[2018-07-31] MEDS: DIVALPROEX ER 500 MG TAB.ER.24H PO SCH (20:20)
[2018-08-01 06:16] VITALS: RESP 16; TEMP 97.5
[2018-08-01] MEDS: PALIPERIDONE 6 MG TAB.ER.24 PO SCH (08:33)
[2018-08-01] MEDS: amLODIPine 10 MG TAB PO SCH (08:33)
[2018-08-01 08:35] VITALS: BP 106/72; PULSE 105
--- NOTE | 2018-08-01 11:53 | P.DS ---
Providers Date of admission: 06/28/18 07:50 Expected date of discharge: 08/01/18 Attending physician: Darion Villa Consults: 06/28/18 08:07 Consult Physician Routine Consulting Provider: Kristina Null Consult Reason/Comments: H & P, medical care, HTN Do you want consulting provider notified?: Yes Primary care physician: Stated None - Discharge Diagnosis(es) (1) Schizophrenia Current Visit: Yes Status: Acute Priority: High Hospital Course: Brief summary of admission note: This patient is a 52-year-old female who was admitted to the mental health unit through the emergency room for acute symptoms of psychosis. The patient was sent to our hospital as she was redirected from the [facility]. A petition was completed indicated she had delusional thoughts and needed to get help from the . She had reported that she was being followed by terrorist since 2006 specifically Sudarshan Fernandez. She reports that she drove from [place] to get help. For full details please refer to my psychiatric evaluation dated 06/28/2018. Summary of hospital course: The patient was admitted to the mental health unit involuntarily and a second clinical certificate was completed. We reviewed her treatment options including medication management. Although she verbalizes she didn't believe she needed medication she did ultimately comply with medication. We initiated Depakote ER 1000 mg at bedtime and invega 3 mg daily. During the course of her hospitalization the invega was titrated. In my absence it was titrated to a total of 12 mg daily. This amount seem to be excessive for her and I reduced the dose back down to 6 mg daily. She was noted to have a resting tremor of her left upper extremity. It is known to us that she did take Cogentin prior to coming here that she refused to take Cogentin. At her initial hearing regarding her involuntary placement she requested an independent medical exam. It is typically a lengthy process arranging that and while waiting she decided to contact her septic tank cleaner again in wave the independent medical exam. Her septic tank cleaner met with her again on the mental health unit and the patient signed a deferral agreement for treatment. The patient's initially was agitated upon admission she demonstrated poor hygiene grooming and was quite disorganized. During the course of the hospitalization her symptoms of psychosis persisted but she spoke of them less spontaneously. She assumed a schedule of showering every other day and would intermittently attending groups. Staff report that she is able to take direction and participate in group and a non-disorganized fashion. During the course of her stay was discovered that she had a urinary tract infection and this was treated with Bactrim for an appropriate course. The patient's family were contacted with the patient's written permission and they are driving from [place] to escort the patient back home. The patient indicates that she is willing to meet with her therapist back home upon discharge. Mental status exam: The patient is a tall overweight female appearing her stated age. She is dressed in her own clothing hygiene grooming adequate. Speech is fluent spontaneous nonpressured. She is easily directed during the session. She reports having no suicidal or homicidal ideation intent or plan. She is reporting no auditory or visual hallucinations at this time. She did report visual hallucinations earlier into the admission but those seem to have subsided. She reports no command auditory hallucinations. She continues to have the delusional belief that she is being pursued by Sudarshan Fernandez but again she is no longer speaking of the spontaneously. She is able to state that although she continues to believe she is persecuted she is able to think about other things as well and set that aside for intervals of time. She demonstrates no verbal or physical aggressiveness. She does demonstrate a resting tremor of her upper left extremity. She is oriented to person place and date. Affect is constricted. Impressions 1. Schizophrenia, rule out bipolar 1 disorder manic with psychosis Plan: At this time we feel the patient is sufficiently stabilized to return home and engage in outpatient care with her established psychiatrist and therapist. She will continue on Invega 6 mg daily and Depakote ER 1000 mg at bedtime. She is encouraged to abstain from any use of alcohol. At this time there is no imminent safety risk she is appropriate for transition outpatient care. She is instructed to go to nearest emergency room with any acute safety concerns. We are awaiting the arrival of her parents to escort her back to [place]. Patient Condition at Discharge: Stable Plan - Discharge Summary New Discharge Prescriptions: New amLODIPine [Norvasc] 10 mg PO DAILY #30 tab Divalproex ER [Depakote ER] 1,000 mg PO HS #60 tab.er.24h Paliperidone [Invega] 6 mg PO DAILY #30 tab.er.24 Discharge Medication List Divalproex ER [Depakote ER] 1,000 mg PO HS #60 tab.er.24h 08/01/18 [Rx] Paliperidone [Invega] 6 mg PO DAILY #30 tab.er.24 08/01/18 [Rx] amLODIPine [Norvasc] 10 mg PO DAILY #30 tab 08/01/18 [Rx] Follow up Appointment(s)/Referral(s): [facility] [NON-STAFF] - 1 Week Patient Instructions/Handouts: Schizophrenia (GEN), Suicide Prevention (GEN) Activity/Diet/Wound Care/Special Instructions: Activity and diet as tolerated. Avoid the use of street drugs and alcohol. Take all medications as prescribed. When you are in need of refills on your medications please contact your medical provider and/or outpatient psychiatrist to have this done. Please go to scheduled outpatient appointment for aftercare treatment. If symptoms return or become worse, call the crisis line at [phone] and/or go to the nearest emergency room for evaluation.
== END 2018-08-01 17:17 | disposition home or self-care (01) | DRG 885 ==
LOC: EC 02:12 → 3MHU 07:50
PROVIDERS: ADMIT Psychiatry & Neurology Psychiatry; ATTEND Psychiatry & Neurology Psychiatry
DX: F20.9 Schizophrenia, unspecified (principal); N39.0 Urinary tract infection, site not specified; G20 Parkinson's disease; I10 Essential (primary) hypertension; Z79.899 Other long term (current) drug therapy; E66.9 Obesity, unspecified; Z68.37 Body mass index [BMI] 37.0-37.9, adult; Z60.2 Problems related to living alone; R45.1 Restlessness and agitation; F31.9 Bipolar disorder, unspecified
CPT/HCPCS: 80048; 80053; 80164; 81001; 82075; 82248; 84439; 84443; 84450; 84460; 84481; 85025; 87086; 99285